=== PATIENT | male | born 1950 | race Caucasian/White ===

== ENCOUNTER 2017-12-20 13:43 | Outpatient (CLI) | payer OTHER ==
--- NOTE | 2017-12-20 15:20 | RAD ---
CHEST TWO VIEWS: History: Dyspnea. Comparison: 04-27-16 FINDINGS: Lungs are clear. No pneumothorax or effusion. Cardiac silhouette and mediastinal contours within norm al limits. IMPRESSION: No acute intrathoracic abnormality. POS: [id number]
== END 2017-12-20 13:44 | disposition home or self-care (01) ==
LOC: RAD 13:43
PROVIDERS: ATTEND Internal Medicine
DX: R06.00 Dyspnea, unspecified (principal)
CPT/HCPCS: 71046